=== PATIENT | female | born 1985 | race Caucasian/White ===

== ENCOUNTER 2018-02-17 13:54 | Emergency (ER) | payer OTHER ==
[~2018-02-17] VITALS: Ht 175.3 cm; Wt 111.1 kg
[2018-02-17] MEDS ORDERED: ADDERALL 20 MG20 MG PO (14:14)
[2018-02-17] MEDS ORDERED: KEFLEX500 M1 PO (15:11)
[2018-02-17 15:20] VITALS: BP 110/81
== END 2018-02-17 15:24 | disposition home or self-care (01) ==
LOC: M.ERS 13:54
DX: S69.82XA Other specified injuries of left wrist, hand and finger(s), initial encounter (principal); F90.9 Attention-deficit hyperactivity disorder, unspecified type; F17.200 Nicotine dependence, unspecified, uncomplicated; X58.XXXA Exposure to other specified factors, initial encounter; Y93.89 Activity, other specified; Y92.89 Other specified places as the place of occurrence of the external cause; Y99.8 Other external cause status